=== PATIENT | male | born 1995 | race Caucasian/White ===

== ENCOUNTER 2023-09-17 06:04 | Emergency (ER) | payer OTHER ==
--- NOTE | 2023-09-17 06:19 | ED Physician Documentation ---
History of Present Illness - Stated complaint Stated Complaint: ABD PX,NUMBNESS,SHAKING - Chief complaint Chief Complaint: Abd Pain - History obtained from History obtained from: Patient - Additonal information Additional information: 27yM previously healthy p/w LLQ pain sharp intermittent severe starting this morning waking from sleep. patient had twinges last night before. one episode nbnb n/v this am. denies diarrhea fever or urinary sx. PD ED PE NORMAL - Vitals Vital signs reviewed: Yes - General General: Alert and oriented X 3, No acute distress, Well developed/nourished - HEENT HEENT: Atraumatic, PERRL, EOMI - Neck Neck: Supple, no meningeal sign - Cardiac Cardiac: RRR - Respiratory Respiratory: No respiratory distress, Clear bilaterally - Abdomen Abdomen: Non tender, Non distended - Derm Derm: Normal color, Warm and dry PD Medical Decision Making - ED course ED course: 27yM p/w LLQ pain, possibly kidney stones. cbc, abdominal panel, u/a, ivf, zofran, and toradol ordered. plan to endorse to incoming daytime ED MD at 7am shift change. Departure - Departure Clinical Impression: Abdominal pain, Vomiting
[2023-09-17] MEDS: KETOROLAC 15 MG/ML VIAL IVP STA (06:21)
[2023-09-17] MEDS: SODIUM CHLORIDE 0.9% 1,000 ML IV STA (06:21)
[2023-09-17] MEDS: ONDANSETRON 4 MG/2 ML VIAL IVP STA ×2 (06:21→07:13)
[2023-09-17 06:23] LABS: BASOPHILS % (AUTO) 0.5 %; EOSINOPHILS # (AUTO) 0.1 10^3/uL (0.0-0.7); EOSINOPHILS % (AUTO) 2.2 %; HCT - HEMATOCRIT 43.1 % (42.0-52.0); HGB - HEMOGLOBIN 14.8 g/dL (14.0-18.0); LYMPHOCYTES # (AUTO) 2.9 10^3/uL (1.5-3.5); LYMPHOCYTES % (AUTO) 44.8 %; MEAN CORPUSCULAR HEMOGLOBIN 29.8 pg (27.0-31.0); MEAN CORPUSCULAR HGB CONC 34.3 g/dL (32.0-36.0); MEAN CORPUSCULAR VOLUME 86.9 fL (80.0-94.0); MEAN PLATELET VOLUME 9.9 fL (7.4-11.4); MONOCYTES # (AUTO) 0.6 10^3/uL (0.0-1.0); MONOCYTES % (AUTO) 9.2 %; NEUTROPHILS # (AUTO) 2.8 10^3/uL (1.5-6.6); NEUTROPHILS % (AUTO) 43.1 %; PLT - PLATELET COUNT 217 10^3/uL (130-450); RED BLOOD COUNT 4.96 10^6/uL (4.70-6.10); RED CELL DISTRIBUTION WIDTH 11.9 % (12.0-15.0); WHITE BLOOD COUNT 6.4 x10^3/uL (4.8-10.8)
[2023-09-17 06:36] LABS: ALBUMIN 4.7 g/dL (3.2-5.5); ALBUMIN/GLOBULIN RATIO 1.9 (1.0-2.2); BILIRUBIN,TOTAL 0.6 mg/dL (0.2-1.0); CALCIUM 10.3 mg/dL (8.5-10.3); CREATININE 1.3 mg/dL (0.6-1.3); POTASSIUM 3.7 mmol/L (3.5-4.5); TOTAL PROTEIN 7.2 g/dL (6.4-8.9)
[2023-09-17] MEDS: MORPHINE 2 MG/ML CARPUJECT IVP STA (06:43)
[2023-09-17] MEDS ORDERED: iohexoL-300 100 ML VIAL ONE (06:45)
[2023-09-17] MEDS: iohexoL-300 100 ML VIAL IVP ONE (07:00)
[2023-09-17] MEDS: HYDROmorphone 0.5 MG/0.5 ML SYRINGE IVP STA (07:13)
[2023-09-17] MEDS: FAMOTIDINE 20 MG/2 ML VIAL IVP STA (07:13)
--- NOTE | 2023-09-17 08:12 | CT Report ---
PROCEDURE: Abdomen/Pelvis W INDICATIONS: LLQ pain CONTRAST: Omni 300, 100mls TECHNIQUE: After the administration of intravenous contrast, a CT scan of the abdomen and pelvis was performed. Images were recorded and evaluated at appropriate window settings. Reformats: coronal and sagittal. F or radiation dose reduction, the following was used: automated exposure control, adjustment of mA and /or kV according to patient size. COMPARISON: None. FINDINGS: Image quality: Diagnostic. Lower chest: Lung bases are clear. Small hiatal hernia. Heart size is normal. Liver: Hepatic steatosis. Gallbladder and biliary tree: No radiopaque stones or wall thickening. No biliary dilation. Spleen: No splenomegaly. There is a 0.9 cm splenic hypodensity incompletely characterized but likely representing a cyst or hemangioma. Pancreas: No pancreatic ductal dilation. Adrenals: No adrenal nodule. Kidneys and ureters: There is an obstructing 3 mm proximal left ureteral stone visualized at the left ureteropelvic junction. Moderate associated left hydronephrosis with minimal perinephric stranding. Left ureter distal to the stone is normal in course and caliber. Right kidney is unremarkable in appe arance without hydronephrosis or nephrolithiasis. Right ureter is normal in course and caliber. Stomach, bowel and peritoneum: No bowel distension. No pathologic free fluid. Normal appendix Lymph nodes: No central or retroperitoneal adenopathy. Vessels: No infrarenal aortic aneurysm. PELVIS Reproductive organs: Unremarkable. Bladder: No abnormal wall thickening, accounting for underdistention. Pelvic lymph nodes: No pelvic adenopathy by size criteria. Bones: No aggressive osseous abnormality. No acute compression fractures. Other: No significant ventral or inguinal hernia. IMPRESSION: Obstructing 3 mm proximal left ureteral stone at the left ureteropelvic junction with associated mode rate left hydronephrosis. Normal appendix. Hepatic steatosis. No significant discrepancy with initial interpretation by overnight radiologist. Reviewed by: Van Taylor MD on 09/17/2023 8:11 AM PDT Approved by: Van Taylor MD on 09/17/2023 8:11 AM PDT Station ID: [id number]
--- NOTE | 2023-09-17 08:23 | ED Physician Documentation ---
ED Addendum - Addendum Addendum: 09/17/23 Patient care assumed at shift change. Patient is resting comfortably. CT r eport demonstrates a 3 mm left ureter Stone. Discussed CT results and recommendations for treatment.Patient is going to try and give a urine sample. Departure - Departure Clinical Impression: Abdominal pain, Vomiting, Left ureteral stone Condition: Stable Instructions: ED Stone Renal W Colic Follow-Up: [facility] Fat[facility] [Provider Group] Prescriptions: Tamsulosin [Flomax] 0.4 mg PO DAILY #14 cap Ibuprofen [Motrin] 800 mg PO Q8H PRN #30 tablet PRN Reason: PAIN &/OR FEVER Oxycodone HCl/Acetaminophen [Percocet 5-325 mg Tablet] 1 each PO Q6H PRN #14 tablet PRN Reason: pain Ondansetron Odt [Zofran] 4 mg TL Q6H PRN #10 tablet PRN Reason: Nausea / Vomiting Comments: You have a 3 mm kidney stone in the left ureter which is the tube connecting the kidney to the bladder. I have sent prescriptions to help manage this to [facility] in [place]. This does include a narcotic pain medication.Please have close follow-up with your PCM at the [facility]. Return to the ER with any worsening symptoms such as uncontrolled pain, fevers or any other concerns. I am prescribing a short course of narcotic pain medication for you. These are potentially dangerous and addictive medications that should be used carefully. These medications may constipate you. Take an pblf-juo-ndywqim stool softener (docusate) twice daily with plenty of water while taking these medications. If you go 24 hours without a bowel movement, take oanm-bgq-nrqcrkg miralax, per package instructions. Do not drink or drive while taking these medications. If you received narcotic or sedating medications while in the emergency d epartment, do not drive for 24 hours. Store this medication in a safe, secure place and out of reach of children. It is a violation of federal law to give or sell this medication to another person or to use in a manner other than prescribed. The ED will not refill narcotic prescriptions, including prescriptions lost or stolen. To dispose of unwanted medications: 1. [facility] at [address] in [place] has a medication drop box. They accept prescription medications (in pill form) Wednesday through Wednesday 9:00 a.m. to 5:00 p.m. 2. The [facility] [employer] accepts prescription medications (in pill form only) for disposal year round. Call for more information. 3. Contact the [facility] for the next [facility] sponsored prescription drug collection event. , x7310, or [phone]; Note that many narcotic pain relievers also contain Tylenol/acetaminophen. Please ensure that your total dose of acetaminophen from all sources does not exceed 3 g (3000 mg) per day. Forms: PCP List, Activity restrictions
[2023-09-17 08:37] VITALS: BP 103/53; O2SAT 99
[2023-09-17 08:44] LABS: BILIRUBIN,URINE NEGATIVE (NEGATIVE); GLUCOSE, URINE (UA) NEGATIVE (NEGATIVE); KETONES,URINE (UA) NEGATIVE (NEGATIVE); LEUKOCYTE ESTERASE, URINE NEGATIVE (NEGATIVE); NITRITE,URINE NEGATIVE (NEGATIVE); OCCULT BLOOD,URINE LARGE (NEGATIVE); PH,URINE 7.5 PH (5.0-7.5); PROTEIN,URINE NEGATIVE (NEGATIVE); UROBILINOGEN,URINE 0.2 (NORMAL) E.U./dL (NORMAL)
[2023-09-17 08:45] LABS: CLARITY,URINE SL. CLOUDY (CLEAR)
[2023-09-17 08:50] LABS: BACTERIA,URINE Rare /HPF (None Seen); RBC,URINE TNTC /HPF (0-5); SQUAMOUS EPITHELIAL CELL,UR FEW Squamous (<= Few); WBC,URINE 0-3 /HPF (0-3)
== END 2023-09-17 09:00 | disposition home or self-care (01) ==
LOC: ED 06:04
DX: N13.2 Hydronephrosis with renal and ureteral calculous obstruction (principal); K76.0 Fatty (change of) liver, not elsewhere classified
CPT/HCPCS: 36415; 74177; 80053; 81001; 83690; 85025; 96374; 96375; 99283; 99284; J1170; Q9967; 81003; 87086

== ENCOUNTER 2023-09-18 16:09 | Emergency (ER) | payer OTHER ==
[2023-09-18 16:16] VITALS: O2SAT 100
--- NOTE | 2023-09-18 16:32 | ED Physician Documentation ---
History of Present Illness - Stated complaint Stated Complaint: ABD PX - Chief complaint Chief Complaint: Abd Pain - History obtained from History obtained from: Patient - History of Present Illness Timing: How many days ago (2) Pain level max: 9 Pain level now: 5 - Additonal information Additional information: Patient is a 27-year-old male who presents to the emergency department with ongoing left flank pain. He was seen here yesterday and diagnosed with a 3 mm left-sided proximal ureteral stone. He states he did not take any pain medication yesterday. This morning awoke with pain again. He states he took Motrin this morning followed by 1 pill of oxycodone 1 hour later. States had pain relief for about an hour but the pain returned. Decided to come back in for evaluation as he was still having pain. No fevers. No chills. No gross hematuria. No nausea or vomiting. Review of Systems Constitutional: denies: Fever, Chills GI: denies: Vomiting, Diarrhea : denies: Dysuria, Frequency, Hesitancy Skin: denies: Rash Musculoskeletal: denies: Neck pain, Back pain Neurologic: denies: Headache PD PAST MEDICAL HISTORY - Past Medical History Past Medical History: Yes Cardiovascular: None Respiratory: None Neuro: None Endocrine/Autoimmune: None GI: None : Kidney stones HEENT: None Psych: None Musculoskeletal: None Derm: None - Past Surgical History Past Surgical History: Yes General: Other Ortho: Arthroscopic surgery - Present Medications Home Medications: Ambulatory Orders Medication Instructions Recorded Confirmed Ibuprofen [Motrin] 800 mg PO Q8H PRN #30 tablet 09/17/23 09/18/23 Nicotine Polacrilex [Nicotine Gum] 2 mg PO DAILY 09/17/23 09/18/23 Ondansetron Odt [Zofran] 4 mg TL Q6H PRN #10 tablet 09/17/23 09/18/23 Oxycodone HCl/Acetaminophen 1 each PO Q6H PRN #14 tablet 09/17/23 09/18/23 [Percocet 5-325 mg Tablet] Tamsulosin [Flomax] 0.4 mg PO DAILY #14 cap 09/17/23 09/18/23 - Allergies Allergies/Adverse Reactions: Allergies Allergy/AdvReac Type Severity Reaction Status Date / Time No Known Drug Allergies Allergy Verified 09/18/23 16:12 - Social History Does the pt smoke?: No Smoking Status: Never smoker Does the pt drink ETOH?: No Does the pt have substance abuse?: No - Immunizations Immunizations are current?: Yes - POLST Patient has POLST: No PD ED PE NORMAL - Vitals Vital signs reviewed: Yes - General General: Alert and oriented X 3, No acute distress - HEENT HEENT: Moist mucous membranes - Neck Neck: Supple, no meningeal sign - Cardiac Cardiac: RRR, Strong equal pulses - Respiratory Respiratory: No respiratory distress, Clear bilaterally - Abdomen Abdomen: Soft, Non tender, Non distended - Back Back: No CVA TTP, No spinal TTP - Derm Derm: Warm and dry - Neuro Neuro: Alert and oriented X 3 - Psych Psych: Normal mood, Normal affect Results - Vitals Vitals: Vital Signs - 24 hr 09/18/23 09/18/23 16:12 17:25 Temperature 36.2 C L Heart Rate 61 66 Respiratory 16 16 Rate Blood Pressure 125/79 127/74 O2 Saturation 100 100 Oxygen O2 Source Room air PD Medical Decision Making - ED course Complexity details: considered differential, d/w patient ED course: Patient was given a dose of IV Dilaudid and IV lidocaine. Pain fully resolved. No indication for repeat testing at this time. We will adjust how he is taking his medications at home to better control his pain. No fevers. No vomiting. No evidence of sepsis. No indication for admission. Patient is well-appearing, nontoxic. Afebrile. Patient counseled regarding signs and symptoms for which I believe and urgent re-evaluation would be necessary. Patient with good understanding of and agreement to plan and is comfortable going home at this time This document was made in part using voice recognition software. While efforts are made to proofread this document, sound alike and grammatical errors may occur. Departure - Departure Disposition: 01 Home, Self Care Clinical Impression: Left ureteral stone Condition: Good Instructions: ED Stone Renal W Colic Follow-Up: your,doctor in 1 week [Other] Comments: Follow-up with your doctor for further care. I would continue the Motrin 800 mg every 8 hours [id number]. I would then add the oxycodone either 2 tabs by mouth every 6 hours or 1 tab every 3-4 hours. This should help to control your pain as we discussed. Please return if you worsen or develop fevers. Forms: PCP List Discharge Date/Time: 09/18/23 17:28
[2023-09-18] MEDS: LIDOCAINE-MPF 2% 6 ML in SODIUM CHLORIDE 0.9% 50 ML IV STA (16:47)
[2023-09-18] MEDS: HYDROmorphone 1 MG/ML CARPUJECT IVP STA (16:50)
[2023-09-18 17:30] VITALS: BP 127/74
== END 2023-09-18 17:28 | disposition home or self-care (01) ==
LOC: ED 16:09
DX: N20.1 Calculus of ureter (principal); Z87.442 Personal history of urinary calculi
CPT/HCPCS: 96365; 96375; 99284; J1170; J7040

== ENCOUNTER 2023-11-20 06:59 | Outpatient (CLI) | payer OTHER ==
--- NOTE | 2023-11-22 10:07 | Ultrasound Report ---
PROCEDURE: Renal (Retroperitoneal) INDICATIONS: URINARY CALCULI TECHNIQUE: Real-time scanning was performed of the retroperitoneal organs, with image documentation. COMPARISON: CT abdomen pelvis 09/17/2023 FINDINGS: Kidneys: Kidneys are normal in size. Right kidney measures 10.4 cm long; left kidney measures 11.6 cm long. Right renal cortical thickness is 0.9 cm; left renal cortical thickness is 1.0 cm. There is mild bilateral hydronephrosis. Bladder: Pre-void bladder volume is 216 mL. Post-void residual is 13 mL. Pre-void images demonstra te no intraluminal masses or stones. On pre-void images, bilateral ureteral jets are noted with colo r Doppler interrogation. (Of note, ureteral jets may not be detectable in up to 25% of cases due to insufficient differences in specific gravity between ureteral and bladder urine). Miscellaneous: No free abdominal fluid. IMPRESSION: Bilateral mild hydronephrosis. No definitive stone or source of obstruction is identified. As clinica lly indicated, further evaluation with CT may be obtained. Reviewed by: Jennifer Mendez MD on 11/22/2023 10:06 AM PDT Approved by: Jennifer Mendez MD on 11/22/2023 10:06 AM PDT Station ID: [id number]
== END 2023-11-20 07:00 | disposition home or self-care (01) ==
LOC: DI 06:59
PROVIDERS: ATTEND Student in an Organized Health Care Education/Training Program
DX: N13.30 Unspecified hydronephrosis (principal)